=== PATIENT | female | born 1985 | race Caucasian/White ===

== ENCOUNTER 2018-08-15 14:44 | Observation (INO) | payer OTHER ==
[~2018-08-15] VITALS: Ht 167.6 cm; Wt 72.1 kg
[2018-08-15] MEDS ORDERED: PREN-380 PO (15:21)
[2018-08-15] MEDS ORDERED: FERR325E14 PO (15:21)
[2018-08-15 16:11] VITALS: BP 107/55
== END 2018-08-15 16:39 | disposition home or self-care (01) ==
LOC: INTOOBSV 14:44 → MLD 14:44
PROVIDERS: ADMIT Obstetrics & Gynecology; ATTEND Obstetrics & Gynecology
DX: O26.899 Other specified pregnancy related conditions, unspecified trimester (principal); R10.9 Unspecified abdominal pain; Z3A.00 Weeks of gestation of pregnancy not specified
CPT/HCPCS: 76815; G0378; Q0092; 59025

== ENCOUNTER 2018-08-18 17:47 | Inpatient (IN) | payer OTHER ==
[~2018-08-18] VITALS: Ht 167.6 cm; Wt 72.1 kg
[~2018-08-18 17:47] MED LIST: FERR325E14 PO; PREN-380 PO
[2018-08-18 19:02] VITALS: BP 105/60
[2018-08-18] MEDS ORDERED: OXYTOCIN 20 UNITS in LACTATED RINGERS 1,000 ML IV SCH (19:07)
[2018-08-18] MEDS ORDERED: ONDANSETRON 4 MG/2 ML VIAL IVP PRN (19:10)
[2018-08-18] MEDS ORDERED: NALBUPHINE 10 MG/ML AMP IVP PRN (19:10)
[2018-08-18] MEDS ORDERED: OXYTOCIN 10 UNITS/ML VIAL IM ONE (19:45)
[2018-08-18] MEDS: LACTATED RINGERS 1,000 ML IV SCH (19:45)
[2018-08-18 20:09] LABS: BASOPHILS # (AUTO) 0.1 K/uL (0.00-0.22); BASOPHILS % (AUTO) 1.4 % (0.0-2.0); EOSINOPHILS # (AUTO) 0.1 K/uL (0-0.4); EOSINOPHILS % (AUTO) 1.5 % (0.0-4.0); HEMATOCRIT 35.3 % (36-48); LYMPHOCYTES # (AUTO) 1.8 K/uL (2.5-16.5); LYMPHOCYTES % (AUTO) 24.9 % (20.5-51.1); MEAN CORPUSCULAR HEMOGLOBIN 32 pg (27-31); MEAN CORPUSCULAR HGB CONC 34 g/dL (33-37); MEAN CORPUSCULAR VOLUME 93.1 fL (80-94); MONOCYTES # (AUTO) 0.4 K/uL (0.8-1.0); MONOCYTES % (AUTO) 5.4 % (1.7-9.3); NEUTROPHILS # (AUTO) 4.9 K/uL (1.8-7.7); NEUTROPHILS % (AUTO) 66.8 % (42.2-75.2); PLATELET COUNT (AUTO) 245 K/uL (140-450); RED BLOOD CELL COUNT(AUTO) 3.79 MIL/uL (4.20-5.40); WHITE BLOOD COUNT (AUTO) 7.4 K/uL (4.8-10.8)
[2018-08-18 20:16] LABS: APPEARANCE,URINE CLEAR (CLEAR); BILIRUBIN,URINE NEGATIVE (NEGATIVE); BLOOD, URINE NEGATIVE (NEGATIVE); COLOR,URINE YELLOW (YELLOW); LEUKOCYTE ESTERASE ,URINE SMALL (NEGATIVE); NITRITE, URINE NEGATIVE (NEGATIVE); PH,URINE 6.5 (5.0-9.0); UGLUCOSE NEGATIVE (NEGATIVE)
[2018-08-18 20:17] LABS: RBC,URINE NONE SEEN /HPF (0-5)
[2018-08-18 20:28] LABS: ALBUMIN 2.6 g/dL (3.4-5.0); ANION GAP 13.3 (8-16); CARBON DIOXIDE 21.6 mmol/L (21-32); CREATININE 0.7 mg/dL (0.6-1.3); POTASSIUM 3.9 mmol/L (3.5-5.1); TOTAL BILIRUBIN 0.5 mg/dL (0.0-1.0)
[2018-08-18] MEDS ORDERED: OXYTOCIN 10 UNITS/ML VIAL IM SCH (20:30)
[2018-08-19] MEDS ORDERED: OXYTOCIN 20 UNITS/LR PREMIX 1,000 ML IV ONE (03:18)
[2018-08-19] MEDS ORDERED: LIDOCAINE 2% 1000 MG/50 ML VIAL INJ ONE (03:35)
[2018-08-19] MEDS: LACTATED RINGERS 1,000 ML IV SCH ×5 (04:05→16:14)
[2018-08-19] MEDS ORDERED: ROPIVACAINE 0.2%/NS PREMIX 250 ML EPI ONE (08:03)
--- NOTE | 2018-08-19 08:39 | NUR ---
PATIENT HAS BEEN SCREENED AND CATEGORIZED LOW NUTRITION RISK. PATIENT WILL BE SEEN WITHIN 7 DAYS OF ADMISSION. 08/25/[address]
[2018-08-19] MEDS ORDERED: ROPIVACAINE 0.2%/NS PREMIX 250 ML EPI SCH (09:30)
[2018-08-19] MEDS ORDERED: INFLUENZA VIRUS VACCINE QUAD 0.5 ML SYR IMVAC PRN (10:00)
[2018-08-19] MEDS ORDERED: OXYTOCIN 10 UNITS/ML VIAL ONE (16:45)
[2018-08-19] MEDS ORDERED: LIDOCAINE 1% 0 ML ONE (16:46)
[2018-08-19] MEDS ORDERED: OXYTOCIN 20 UNITS in LACTATED RINGERS 1,000 ML IV SCH (18:09)
[2018-08-19] MEDS ORDERED: IBUPROFEN 600 MG TAB PO PRN (18:10)
[2018-08-19] MEDS ORDERED: BISACODYL 5 MG TABEC PO PRN (18:10)
[2018-08-19] MEDS ORDERED: MEASLES, MUMPS, AND RUBELLA 1 VIAL SQVAC PRN (18:10)
[2018-08-19] MEDS: ACETAMINOPHEN 325 MG TAB PO PRN (19:36)
[2018-08-19] MEDS ORDERED: ACETAMINOPHEN 325 MG TAB ONE (19:40)
[2018-08-20 10:24] LABS: BASOPHILS % (AUTO) 0.2 % (0.0-2.0); EOSINOPHILS # (AUTO) 0.1 K/uL (0-0.4); EOSINOPHILS % (AUTO) 0.9 % (0.0-4.0); HEMATOCRIT 33.5 % (36-48); HEMOGLOBIN 11.3 g/dL (12.0-16.0); LYMPHOCYTES # (AUTO) 1.7 K/uL (2.5-16.5); LYMPHOCYTES % (AUTO) 17.3 % (20.5-51.1); MEAN CORPUSCULAR HEMOGLOBIN 32 pg (27-31); MEAN CORPUSCULAR HGB CONC 34 g/dL (33-37); MEAN CORPUSCULAR VOLUME 94.7 fL (80-94); MONOCYTES # (AUTO) 0.5 K/uL (0.8-1.0); NEUTROPHILS # (AUTO) 7.6 K/uL (1.8-7.7); NEUTROPHILS % (AUTO) 76.6 % (42.2-75.2); PLATELET COUNT (AUTO) 222 K/uL (140-450); RED BLOOD CELL COUNT(AUTO) 3.54 MIL/uL (4.20-5.40); RED CELL DISTRIBUTION WIDTH 13.2 % (11.6-13.7)
[2018-08-21] MEDS: ACETAMINOPHEN 325 MG TAB PO PRN (07:03)
[2018-08-21] MEDS ORDERED: FERR325E14 PO (09:31)
[2018-08-21] MEDS ORDERED: ACET-9800 PO (09:32)
== END 2018-08-21 15:05 | disposition home or self-care (01) | DRG 560 ==
LOC: MLD 17:47 → MFCC 08-19 20:35
PROVIDERS: ADMIT Obstetrics & Gynecology; ATTEND Obstetrics & Gynecology
PROC: 10E0XZZ Delivery of Products of Conception, External Approach (ICD-10-PCS; principal; 2018-08-19)
PROC: 10907ZC Drainage of Amniotic Fluid, Therapeutic from Products of Conception, Via Natural or Artificial Opening (ICD-10-PCS; 2018-08-19)
PROC: 3E033VJ Introduction of Other Hormone into Peripheral Vein, Percutaneous Approach (ICD-10-PCS; 2018-08-19)
PROC: 00HU33Z Insertion of Infusion Device into Spinal Canal, Percutaneous Approach (ICD-10-PCS; 2018-08-19)
PROC: 3E0R3BZ Introduction of Anesthetic Agent into Spinal Canal, Percutaneous Approach (ICD-10-PCS; 2018-08-19)
PROC: 3E0234Z Introduction of Serum, Toxoid and Vaccine into Muscle, Percutaneous Approach (ICD-10-PCS; 2018-08-20)
PROC: 3E02340 Introduction of Influenza Vaccine into Muscle, Percutaneous Approach (ICD-10-PCS; 2018-08-20)
DX: O69.81X0 Labor and delivery complicated by cord around neck, without compression, not applicable or unspecified (principal); Z23 Encounter for immunization; Z37.0 Single live birth; Z3A.39 39 weeks gestation of pregnancy
CPT/HCPCS: 36415; 51702; 59409; 80053; 81001; 85025; 86592; 86886; 86900; 86901; 87086; 90658; 90715; J2001; J2590; J2795; J7120